=== PATIENT | female | born 1930 | race Caucasian/White ===

== ENCOUNTER 2022-07-28 13:35 | Emergency (ER) | payer MEDICARE, BC ==
[2022-07-28 13:42] VITALS: BP 149/65; PULSE 68; RESP 16; TEMP 97
[2022-07-28] MEDS ORDERED: hydrOXYzine HCL 50 MG/ML 1 ML VIAL IM PRN (14:42)
--- NOTE | 2022-07-28 14:52 | ED ---
Skin/Abscess/FB HPI - General Chief complaint: Skin/Abscess/Foreign Body Stated complaint: rash Time Seen by Provider: 07/28/22 14:15 Source: patient, family, RN notes reviewed, old records reviewed Mode of arrival: ambulatory Limitations: no limitations - History of Present Illness Initial comments: This is a nontoxic-appearing 89-year-old female presenting to the toilet with her complaining of a itchy rash all over her neck back chest and arms for the past 2 weeks. Patient states started suddenly after eating a hotdog at the store Sunday after [employer]. She states is progressively getting worse to initial started on her buttocks which is now resolved. She did see her primary care doctor last week and prescribed her a steroid taper which she finished yesterday. Did see the doctor again on Sunday with no relief and he recommended dermatology. Patient states that she has been taking Benadryl with no relief. She has not been able to sleep due to the itching and wants someone to help her. Denies any nausea vomiting diarrhea or fevers. No difficulty breathing no throat swelling. Only medical history is hypertension. Does take vitamins, atenolol and rosuvastatin daily. MD complaint: rash -: week(s) (2) Location: neck, chest, LUE, RUE, buttocks Quality: constant Consistency: constant Improves with: none Worsens with: none Context: none Associated symptoms: denies other symptoms Treatments Prior to Arrival: OTC topical medication, Benadryl, corticosteroid - Related Data Previous Rx's Medication Instructions Recorded hydrOXYzine pamoate [Vistaril] 25 mg PO TID PRN #30 cap 07/28/22 Allergies Allergy/AdvReac Type Severity Reaction Status Date / Time No Known Allergies Allergy Verified 07/28/22 13:42 Review of Systems ROS Statement: Those systems with pertinent positive or pertinent negative responses have been documented in the HPI. ROS Other: All systems not noted in ROS Statement are negative. Past Medical History Past Medical History: Hypertension History of Any Multi-Drug Resistant Organisms: None Reported Past Surgical History: No Surgical Hx Reported Past Psychological History: No Psychological Hx Reported Smoking Status: Never smoker Past Alcohol Use History: None Reported Past Drug Use History: None Reported General Exam Limitations: no limitations General appearance: alert, in no apparent distress Head exam: Present: atraumatic Eye exam: Present: normal appearance. Absent: scleral icterus, conjunctival injection, periorbital swelling ENT exam: Present: mucous membranes moist Neck exam: Present: full ROM, other (Maculopapular rash to anterior and posterior, non-blistering , urticaria). Absent: tenderness, meningismus Expanded Neck exam: Absent: midline deformity, anterior neck swelling, thyroid mass, tracheal deviation Respiratory exam: Absent: respiratory distress, accessory muscle use Cardiovascular Exam: Present: regular rate GI/Abdominal exam: Present: soft, other (Maculopapular rash with urticaria bilateral flanks and under the breasts bilaterally, no dried scale or blistering and no evidence or concern for shingles infection). Absent: distended, rigid Extremities exam: Present: full ROM, normal capillary refill. Absent: tenderness Back exam: Present: full ROM, rash noted. Absent: CVA tenderness (R), CVA tenderness (L), paraspinal tenderness, vertebral tenderness Neurological exam: Present: alert, oriented X3, normal gait Psychiatric exam: Present: normal affect, normal mood, anxious Skin exam: Present: warm, dry, intact, rash (Maculopapular rash to anterior and posterior neck, and left and right breasts and bilateral flanks. Distal forearms bilaterally), urticaria. Absent: cyanosis, diaphoretic, vesicles, petechiae, pallor, mottled Course Vital Signs 07/28/22 13:40 Temperature 97 F L Pulse Rate 68 Respiratory 16 Rate Blood Pressure 149/65 O2 Sat by Pulse 96 Oximetry Medical Decision Making - Medical Decision Making Patient presents with a maculopapular urticarial rash since Sunday after . She has seen her primary care doctor who prescribed her a steroid taper which she finished yesterday. Patient states that the rash on her buttocks has improved however now the rash is on her back under both breasts, the back and front of her neck and both forearms. Patient states she is having trouble sleeping. She has been taking Benadryl, using calamine lotion and dermoplast spray with no relief. She denies any fevers. No difficulty breathing. No nausea vomiting or diarrhea. No new medications. She has changed her soap and wash all of her clothing. She does take many daily vitamins along with atenolol and rosuvastatin. 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 Patient was given an injection of Vistaril. Directed to stop taking Benadryl. I also advised her to stop supplemental vitamins to determine the cause of her rash until seen by dermatology. She also directed to use Aquaphor lotions to keep skin hydrated. Continue calamine lotion as needed. Patient will be discharged on Vistaril as needed. I did explain to her and her that this medication can be sedating and to only take it as directed. Follow-up with her primary care doctor next week. Return to the emergency room with any new or concerning symptoms. She is agreeable to this plan of care. Case discussed with Dr. Mcgill Disposition Clinical Impression: Rash and nonspecific skin eruption Disposition: HOME SELF-CARE Condition: Good Instructions (If sedation given, give patient instructions): Urticaria (ED) Additional Instructions: Use Aquaphor lotions to keep the skin hydrated. Take the Vistaril as prescribed for itching. Stop taking the Benadryl. Stop taking all your vitamins. Discuss with your primary care doctor the possibility of any other medication side effects. Prescriptions: hydrOXYzine pamoate [Vistaril] 25 mg PO TID PRN #30 cap PRN Reason: Itching Is patient prescribed a controlled substance at d/c from ED?: No Referrals: Blaine Grace MD [Primary Care Provider] - 1-2 days Alvaro Villagomez MD [STAFF PHYSICIAN] - 1-2 days Time of Disposition: 14:51
== END 2022-07-28 15:21 | disposition home or self-care (01) ==
LOC: EC 13:35
DX: R21 Rash and other nonspecific skin eruption (principal); I10 Essential (primary) hypertension
CPT/HCPCS: 99282; 96372; J3410